=== PATIENT | female | born 1970 | race Caucasian/White ===

== ENCOUNTER 2019-10-06 18:22 | Inpatient (IN) | payer OTHER ==
[~2019-10-06] VITALS: Ht 177.8 cm; Wt 89.2 kg
--- NOTE | ~2019-10-06 | OP ---
[address] [address] OPERATIVE REPORT Name: BONILLAARIA R Room: [address] IN M.R.#: [id number] Admission: 10/06/19 Attend Phys: Tanisha Guerrero MD Discharge: Date of : 74 Report #: [id number] THIS REPORT FOR: //name// cc: Lacey Higgins MD, Elizabeth MD ~ THIS REPORT FOR: //name// CC: Lacey Guerrero DATE OF SERVICE: 10/07/2019 PREOPERATIVE DIAGNOSIS: Acute appendicitis. POSTOPERATIVE DIAGNOSIS: Acute appendicitis. OPERATION: Laparoscopic appendectomy. SURGEON: Dalton Delgado MD ANESTHESIA: General. ESTIMATED BLOOD LOSS: Minimal. SPECIMEN: Appendix. DESCRIPTION OF PROCEDURE: After informed consent was obtained, the patient was brought to the operating room and placed supine. SCDs were placed and working, preoperative antibiotics were administered, general anesthesia was induced. The abdomen was prepped and draped in the usual sterile fashion. A 10 mm incision was made below the umbilicus. Fascia was incised and a trocar was placed. Pneumoperitoneum was established. A right upper quadrant and left lower quadrant 5 mm ports were placed. The appendix was grasped and retracted anteriorly. A window was made in the mesoappendix. The mesoappendix was ligated with a ELIEL white load stapler. The base of the appendix was stapled with a ELIEL blue load stapler. The appendix was removed through an Endopouch. The fascia was then closed with a dzqcge-wg-pevaf 0 Vicryl. Skin was closed with 4-0 Monocryl. Incisions were sealed with Dermabond. COMPLICATIONS: [place] [address] OPERATIVE REPORT Name: ARIA CRYSTAL Room: [address]#: [id number] Admission: 10/06/19 Attend Phys: Tanisha Guerrero MD Discharge: Date of : 74 Report #: [id number] DISPOSITION: The patient was taken to recovery in satisfactory condition. By: [id number] Delgado MD /nt
[2019-10-06 18:35] VITALS: BP 128/63
[2019-10-06] MEDS ORDERED: CLARITIN10 M3 PO (18:37)
[2019-10-06] MEDS ORDERED: SYMBICORT160 MCG/4. INH (18:37)
[2019-10-06] MEDS ORDERED: LEXAPRO 10 MG T10 M2 PO (18:37)
[2019-10-06 18:48] LABS: URINE BILIRUBIN NEGATIVE (Negative); URINE BLOOD TRACE (Negative); URINE CLARITY CLEAR; URINE COLOR YELLOW; URINE GLUCOSE-RANDOM NEGATIVE (Negative); URINE KETONES NEGATIVE (Negative); URINE LEUKOCYTES-REFLEX NEGATIVE (Negative); URINE NITRITE-REFLEX NEGATIVE (Negative); URINE PROTEIN NEGATIVE (Negative); URINE UROBILINOGEN 0.2 E.U./dl (0.2-1.0)
[2019-10-06 19:19] LABS: ABSOLUTE BASOPHILS 0.2 thou/uL (0.0-0.2); ABSOLUTE MONOCYTES 1.3 thou/uL (0.0-1.2); ABSOLUTE NEUTROPHILS 16.5 thou/uL (1.6-8.1); BASOPHILS 0.9 %; HEMATOCRIT 36.6 % (37.0-47.0); HEMOGLOBIN 12.4 gm/dL (12.0-15.0); MCH 28.7 pg (26.0-34.0); MCV 84.6 fL (80.0-100.0); MONOCYTES 6.5 %; MPV 8.5 fl. (7.2-11.1); NUCLEATED RBCS 0 /100WBC; PLATELET COUNT* 313 thou/uL (150-400); POLYS 82.6 %; RBC 4.33 mil/uL (4.20-5.00); RDW-CV 15.2 % (10.5-14.5)
[2019-10-06 19:23] LABS: POTASSIUM 3.4 mmol/L (3.5-5.1)
[2019-10-06 19:27] LABS: ALBUMIN 3.5 g/dL (3.4-5.0); TOTAL BILIRUBIN 0.5 mg/dL (<0.1-1.0); TOTAL PROTEIN 6.8 g/dL (6.4-8.2)
[2019-10-06 23:40] VITALS: BP 101/62
[2019-10-06 23:48] VITALS: BP 103/63
--- NOTE | 2019-10-07 04:26 | NUR ---
ASSUMED CARE OF PT 10/06/19 AT APPROX 1930. PT A&OX4, ON ROOM AIR, VSS, IV FLUIDS INFUSING ORDERED, PAIN MEDS REQUESTED AND GIVEN ORDERED, PT NPO. ASSESSMENTS AND HOURLY ROUNDINGS COMPLETE. WILL CONTINUE TO MONITOR.
[2019-10-07 08:00] VITALS: BP 122/62
[2019-10-07 09:33] LABS: CALCIUM 7.7 mg/dL (8.5-10.1); CREATININE 0.9 mg/dL (0.6-1.3); MAGNESIUM 1.9 mg/dL (1.8-2.4); POTASSIUM 3.4 mmol/L (3.5-5.1)
[2019-10-07 09:35] LABS: APTT 27.4 Seconds (25.0-31.3); INR 1.1; PROTIME 11.3 Seconds (9.20-11.50)
[2019-10-07 09:52] LABS: HEMATOCRIT 34.7 % (37.0-47.0); HEMOGLOBIN 11.5 gm/dL (12.0-15.0); MCH 28.7 pg (26.0-34.0); MCHC 33.2 g/dL (28.0-37.0); MCV 86.3 fL (80.0-100.0); MPV 9.2 fl. (7.2-11.1); RBC 4.02 mil/uL (4.20-5.00); RDW-CV 15.3 % (10.5-14.5); WBC 12.7 thou/uL (4.0-11.0)
[2019-10-07 11:11] VITALS: BP 122/62
[2019-10-07 15:54] VITALS: BP 94/51
[2019-10-07 20:00] VITALS: BP 100/52
[2019-10-08 00:10] VITALS: BP 106/55; BP 143/93
--- NOTE | 2019-10-08 05:44 | NUR ---
ASSUMED CARE OF PT AFTER REPORT AT 1930. PT A&OX4. VSS. PHYSICAL ASSESSMENT COMPLETED AND CHARTED. PT ON RA. PT ON MEDSURG STATUS. PT UPADLIB TO RESTROOM. PT COMPLAINED OF RLQ ABDOMINAL PAIN-MED GIVEN PER AUG. PT ABLE TO SLEEP WELL ON BED. CALL LIGHT WITHIN REACH.
[2019-10-08 08:15] VITALS: BP 106/57
[2019-10-08] MEDS ORDERED: HYDROCODON-ACE1 EAC7 PO (12:54)
[2019-10-08] MEDS ORDERED: SENOKOTXTRA17.2 MG PO (12:55)
[2019-10-08] MEDS ORDERED: CIPRO500 M1 PO (13:03)
[2019-10-08 13:53] VITALS: BP 106/57
--- NOTE | 2019-10-08 16:57 | NUR ---
DISCHARGED HOME. DISCHARGE INSTRUCTIONS, RXS AND WORK NOTE GIVEN. DENIES PAIN. LAP SITES TO ABDOMEN REMAIN CDI. INSTRUCTED TO RETURN IF ANY ISSUES ARISE.
--- NOTE | 2019-10-10 16:20 | PATH ---
[address] [address] PATHOLOGY RPT PROCEDURE Name: ANA CRYSTAL Room: [address] IN M.R.#: [id number] Admission: 10/06/19 Date of : 74 Discharge: 10/08/19 Report #: [id number] Path Case #: [id number] [facility] Accession Number: [id number] . 01 Material submitted: . appendix - APPENDIX . 01 Clinical history: . Appendicitis . 02 Diagnosis: Appendix: - Acute appendicitis and serositis. (APRIL:radha; 10/09/2019) [facility] [place] 10/09/2019 1144 Local . 02 Electronically signed: . Rory San MD, Pathologist NPI- [id number] . 01 Gross description: . The specimen is received in formalin, labeled "Ana Crystal, kaylah" and consists of an appendix measuring 5.3 cm in length and up to 0.8 cm in diameter with mesoappendix measuring 2.0 cm thick. The serosa is mina with thin adhesions. The margin is closed with a line of marsha and inked black. Sectioning reveals a pinpoint lumen and no gross lesions. The appendix is entirely submitted in A1-A3. (SDY; 10/08/2019) [facility]/SYU 10/08/2019 1245 Local . 02 Pathologist provided ICD-10: K35.80 . 02 CPT . [id number] Specimen Comment: A courtesy copy of this report has been sent to [phone] Specimen Comment: [id number] Specimen Comment: Report sent to Specimen Comment: A duplicate report has been generated due to demographic updates. Performed at: [address] [id number] MD Charles Taveras MD Phone: [phone] Performed at: [address] [id number] [address] [address] PATHOLOGY RPT PROCEDURE Name: ANA CRYSTAL Room: [address] IN M.R.#: [id number] Admission: 10/06/19 Date of : 74 Discharge: 10/08/19 Report #: [id number] Path Case #: [id number] MD Rory San MD Phone: [phone]
== END 2019-10-08 14:45 | disposition home or self-care (01) | DRG 854 ==
LOC: M.ERS 18:22 → M.2W 22:32 → M.TBA-ER 22:32 → M.2W 23:48
PROVIDERS: Internal Medicine; Nurse Practitioner Family; ADMIT Internal Medicine
PROC: 0DTJ4ZZ Resection of Appendix, Percutaneous Endoscopic Approach (ICD-10-PCS; principal; 2019-10-07)
DX: A41.9 Sepsis, unspecified organism (principal); K35.80 Unspecified acute appendicitis; J45.909 Unspecified asthma, uncomplicated; K58.9 Irritable bowel syndrome, unspecified; N85.9 Noninflammatory disorder of uterus, unspecified; F41.1 Generalized anxiety disorder; D25.9 Leiomyoma of uterus, unspecified; Z79.899 Other long term (current) drug therapy; Z91.040 Latex allergy status

== ENCOUNTER 2019-10-15 08:30 | Inpatient (IN) | payer OTHER ==
[~2019-10-15] VITALS: Ht 177.8 cm; Wt 92.7 kg
[~2019-10-15 08:30] MED LIST: CIPRO500 M1 PO; CLARITIN10 M3 PO; HYDROCODON-ACE1 EAC7 PO; LEXAPRO 10 MG T10 M2 PO; SENOKOTXTRA17.2 MG PO; SYMBICORT160 MCG/4. INH
[2019-10-15 08:45] VITALS: BP 123/80
[2019-10-15 09:15] LABS: URINE BILIRUBIN NEGATIVE (Negative); URINE BLOOD 1+ (Negative); URINE CLARITY CLEAR; URINE COLOR YELLOW; URINE GLUCOSE-RANDOM NEGATIVE (Negative); URINE KETONES NEGATIVE (Negative); URINE LEUKOCYTES-REFLEX NEGATIVE (Negative); URINE NITRITE-REFLEX NEGATIVE (Negative); URINE PROTEIN NEGATIVE (Negative); URINE SPECIFIC GRAVITY >= 1.030 (1.005-1.030); URINE UROBILINOGEN 0.2 E.U./dl (0.2-1.0)
[2019-10-15 09:25] LABS: ABSOLUTE BASOPHILS 0.1 thou/uL (0.0-0.2); ABSOLUTE EOSINOPHILS 0.4 thou/uL (0.0-0.7); ABSOLUTE LYMPHOCYTES 1.5 thou/uL (0.8-5.3); ABSOLUTE MONOCYTES 1.1 thou/uL (0.0-1.2); ABSOLUTE NEUTROPHILS 8.6 thou/uL (1.6-8.1); BASOPHILS 0.6 %; EOSINOPHILS 3.7 %; HEMATOCRIT 37.9 % (37.0-47.0); HEMOGLOBIN 12.4 gm/dL (12.0-15.0); LYMPHOCYTES 12.5 %; MCH 28.1 pg (26.0-34.0); MCHC 32.8 g/dL (28.0-37.0); MCV 85.7 fL (80.0-100.0); MONOCYTES 9.8 %; MPV 8.7 fl. (7.2-11.1); NUCLEATED RBCS 0 /100WBC; PLATELET COUNT* 419 thou/uL (150-400); POLYS 73.4 %; RBC 4.42 mil/uL (4.20-5.00); RDW-CV 15.5 % (10.5-14.5); WBC 11.7 thou/uL (4.0-11.0)
[2019-10-15 09:27] LABS: BACTERIA-REFLEX 1-9 Few /HPF (None Seen); CASTS None Seen /LPF (None Seen); CRYSTALS None Seen /LPF (None Seen); MUCUS None Seen strn/LPF (None Seen); SQUAMOUS >10 Many /LPF (0-3); URINE RBC 3-10 Few /HPF (0-2); URINE WBC-REFLEX 0-5 Rare /HPF (0-5)
[2019-10-15 09:29] LABS: CALCIUM 8.8 mg/dL (8.5-10.1); CREATININE 0.7 mg/dL (0.6-1.3); POTASSIUM 3.8 mmol/L (3.5-5.1)
[2019-10-15 09:33] LABS: ALBUMIN 3.4 g/dL (3.4-5.0); TOTAL BILIRUBIN 0.3 mg/dL (<0.1-1.0); TOTAL PROTEIN 7.6 g/dL (6.4-8.2)
--- NOTE | 2019-10-15 10:34 | NUR ---
CHIDI NOTIFIED UPON PT RETURN FROM CT. PT WAS NOT CONNECTED TO MONITOR SHE WAS NOT CONNECTED PRIOR TO CT
[2019-10-15 12:25] VITALS: BP 115/55
[2019-10-15 12:30] VITALS: BP 113/62
--- NOTE | 2019-10-15 15:02 | NUR ---
RECEIVED PT REPORT FROM ER AT 1230. GET SITUATED TO ROOM. TELE IN PLACED TRACING SR. PT COMPLAINS OF MILD ABDOMINAL DISCOMFORT. AOX4, UP AD IZABEL, O2 SAT 90'S RA. IVF INFUSSING ORDER. ADMISSION ASSESSMENT CHARTED. VSS, HOURLY ROUNDING. CALL LIGHT WITHIN REACH, WILL CONTINUE TO MONITOR.
[2019-10-15 15:49] VITALS: BP 102/63
--- NOTE | 2019-10-15 15:53 | EKG ---
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
[2019-10-15 20:00] VITALS: BP 117/76
[2019-10-16] VITALS: BP 110/65
[2019-10-16 03:50] VITALS: BP 112/69
--- NOTE | 2019-10-16 04:54 | NUR ---
ASSUMED CARE OF PT AFTER REPORT AT 1930. PT A&OX4. VSS. PHYSICAL ASSESSMENT COMPLETED AND CHARTED. PT ON RA. PT TRACING SR ON TELE. PT UPADLIB TO RESTROOM. MAINTAINED ON CLEAR LIQUID ORDERED. PT COMPLAINED OF HEADACHE, NAUSEA & VOMITING-MED GIVEN PER MAR. CALL LIGHT WITHIN REACH.
[2019-10-16 06:27] LABS: HEMATOCRIT 33.7 % (37.0-47.0); HEMOGLOBIN 11.3 gm/dL (12.0-15.0); MCH 28.8 pg (26.0-34.0); MCHC 33.7 g/dL (28.0-37.0); MCV 85.4 fL (80.0-100.0); MPV 8.5 fl. (7.2-11.1); RBC 3.94 mil/uL (4.20-5.00); RDW-CV 15.5 % (10.5-14.5); WBC 12.4 thou/uL (4.0-11.0)
[2019-10-16 06:43] LABS: CALCIUM 8.1 mg/dL (8.5-10.1); CREATININE 0.8 mg/dL (0.6-1.3); MAGNESIUM 1.8 mg/dL (1.8-2.4); POTASSIUM 3.6 mmol/L (3.5-5.1); TOTAL BILIRUBIN 0.3 mg/dL (<0.1-1.0); TOTAL PROTEIN 6.6 g/dL (6.4-8.2)
[2019-10-16 08:15] VITALS: BP 110/74
--- NOTE | 2019-10-16 14:57 | NUR ---
pt is pleasant and progressed toward goals no complaints at this time brought a bag of belonings pt showered stated she felt better after getting cleaned up advanced to full liquid diet states she is hungry and would like to eat no N&V at this time
--- NOTE | 2019-10-16 15:41 | NUR ---
Pt lives at home with and child(angelika). Pt independent with mobility and ADLs. Pt does not have known history of HH or SNF or any DME. No dc needs anticipated; SW/CM to remain available to assist with safe dc planning if needs arise.
[2019-10-16 16:00] VITALS: BP 99/59
[2019-10-16 20:00] VITALS: BP 115/59
[2019-10-16 23:58] VITALS: BP 99/59
--- NOTE | 2019-10-17 04:56 | NUR ---
ASSUMED CARE OF PT AFTER REPORT AT 1930. PT A&OX4. VSS. PHYSICAL ASSESSMENT COMPLETED AND CHARTED. PT ON RA. PT ON MEDSURG STATUS. PT UPADLIB TO RESTROOM. PT DENIES ANY PAIN AND N/V. PT ABLE TO SLEEP WELL ON BED. CALL LIGHT WITHIN REACH.
[2019-10-17 05:57] LABS: HEMATOCRIT 29.8 % (37.0-47.0); HEMOGLOBIN 10.4 gm/dL (12.0-15.0); MCH 29.4 pg (26.0-34.0); MCHC 34.8 g/dL (28.0-37.0); MCV 84.4 fL (80.0-100.0); MPV 8.3 fl. (7.2-11.1); RBC 3.53 mil/uL (4.20-5.00); WBC 9.2 thou/uL (4.0-11.0)
[2019-10-17 06:11] LABS: ALBUMIN 2.9 g/dL (3.4-5.0); CALCIUM 8.1 mg/dL (8.5-10.1); CREATININE 0.8 mg/dL (0.6-1.3); MAGNESIUM 1.9 mg/dL (1.8-2.4); POTASSIUM 3.2 mmol/L (3.5-5.1); TOTAL BILIRUBIN 0.3 mg/dL (<0.1-1.0); TOTAL PROTEIN 6.2 g/dL (6.4-8.2)
[2019-10-17 07:55] VITALS: BP 112/60
--- NOTE | 2019-10-17 16:52 | NUR ---
PT A&Ox4. VITALS STABLE. NO IV, DR LEIVA. SWITCHED TO PO ABX, POSSIBLE DC TOMORROW. TOLERATING REGULAR DIET. DENIED NAUSEA/VOMITING. HAD BM DURING SHIFT. MINIMAL PAIN, NO PAIN MEDS GIVEN. UP AD IZABEL. PT STABLE. CALL LIGHT WITHIN REACH. WILL CONTINUE TO MONITOR.
[2019-10-17 19:18] VITALS: BP 120/69
[2019-10-17 20:00] VITALS: BP 134/76
[2019-10-18] VITALS: BP 118/71
--- NOTE | 2019-10-18 04:04 | NUR ---
ASSUMED CARE OF PT AFTER REPORT AT 1930. PT A&OX4. VSS. PHYSICAL ASSESSMENT COMPLETED AND CHARTED. PT ON RA. PT ON MEDSURG STATUS. PT UPADLIB TO RESTROOM. PT DENIES ANY PAIN & N/V. PT ABLE TO SLEEP WELL ON BED. CALL LIGHT WITHINN REACH.
[2019-10-18 07:47] VITALS: BP 112/69
[2019-10-18 09:46] LABS: CALCIUM 8.9 mg/dL (8.5-10.1); CREATININE 0.9 mg/dL (0.6-1.3); POTASSIUM 3.9 mmol/L (3.5-5.1)
[2019-10-18] MEDS ORDERED: FLAGYL500 M1 PO (10:16)
[2019-10-18 10:18] VITALS: BP 112/69
[2019-10-18] MEDS ORDERED: CIPRO500 M1 PO (10:18)
--- NOTE | 2019-10-18 10:53 | NUR ---
PT DISCHARGED TO HOME WITH NURSING STAFF. IV OUT. PT STABLE. TOLERATING DIET. DENIED PAIN. PAPER SCRIPTS, CARE NOTES AND DISCHARGE PAPERWORK GIVEN. PERSONAL BELONGINGS SENT WITH PT.
== END 2019-10-18 10:45 | disposition home or self-care (01) | DRG 392 ==
LOC: M.ERS 08:30 → M.TBA-ER 11:10 → M.2W 11:10
PROVIDERS: Family Medicine; Nurse Practitioner; ADMIT Internal Medicine
DX: K52.9 Noninfective gastroenteritis and colitis, unspecified (principal); J45.909 Unspecified asthma, uncomplicated; F41.9 Anxiety disorder, unspecified; D72.829 Elevated white blood cell count, unspecified; E86.0 Dehydration; N20.0 Calculus of kidney; D25.9 Leiomyoma of uterus, unspecified; Z91.040 Latex allergy status; Z79.899 Other long term (current) drug therapy